=== PATIENT | male | born 1940 | race Caucasian/White ===

== ENCOUNTER 2018-07-10 13:37 | Inpatient (IN) ==
[2018-07-10] MEDS ORDERED: SODIUM CHLORIDE 0.9% 1,000 ML IV STA (14:12)
[2018-07-10 14:20] LABS: Basophils % 0.3 % (0.0-0.8); Eosinophils # 0.3 10*3/uL (0.0-0.87); Eosinophils % 2.5 % (0.00-10.9); Hematocrit 30.5 VOL% (42.0-52.0); Hemoglobin 9.3 GM/DL (14.0-18.0); Immature Granulocytes % 0.4 %; Immature Granulocytes Absolute 0.05 #; Lymphocytes # 1.6 10*3/uL (1.4-4.0); Lymphocytes % 13.5 % (21.2-54.2); Mean Corpuscular HGB Conc 30.5 GM/DL (32-36); Mean Corpuscular Hemoglobin 23 PG (27-34); Mean Corpuscular Volume 74.6 FL (87-102); Mean Platelet Volume 9.8 FL (9.6-12.0); Monocytes # 1.6 10*3/uL (0.11-0.8); Monocytes % 13.3 % (1.7-12.7); Neutrophils # 8.4 10*3/uL (1.4-7.4); Platelet Count 360 T/CUMM (130-400); Red Blood Count 4.09 MC/CUMM (3.8-5.5); Red Cell Distribution Width 19.2 % (9.3-17.3)
[2018-07-10 14:45] LABS: Albumin 3.6 G/DL (3.4-5.0); Bilirubin,Total 0.8 MG/DL (0.2-1.0); Calcium 9.4 MG/DL (8.5-10.1); Osmolality,Calculated 282.7 MOS/KG (273-304); Potassium 2.9 MMOL/L (3.5-5.1); Total Protein 7.5 G/DL (6.4-8.3)
[2018-07-10] MEDS ORDERED: POTASSIUM CHLORIDE 20 MEQ TABLET PO STA (14:56)
[2018-07-10] MEDS ORDERED: traZODone 50 MG TABLET PO PRN (16:20)
[2018-07-10] MEDS ORDERED: ACETAMINOPHEN 325 MG TABLET PO PRN (16:20)
[2018-07-10] MEDS ORDERED: ONDANSETRON 4 MG/2 ML VIAL IV PRN (16:20)
[2018-07-10] MEDS ORDERED: MAGNESIUM SULF RIDER 2 GM in PREMIX 1 EACH IV PRN (16:29)
[2018-07-10] MEDS ORDERED: MAGNESIUM SULF RIDER 4 GM in PREMIX 1 EACH IV PRN (16:29)
[2018-07-10 16:30] LABS: Apearance,Urine CLEAR (Clear); Bacteria,Urine Occasional /HPF (Few); Bilirubin,Urine Negative (Negative); Blood, Urine Negative (Negative); Glucose,Urine (UA) Negative (Negative); Ketones,Urine Negative (Negative); Mucus,Urine Occasional /LPF (Occasional); Nitrite,Urine Negative (Negative); Protein,Urine Negative; Sperm,Urine Occasional /HPF (Negative); Urine Color Yellow (Yellow); Urine Specific Gravity 1.013 (1.001-1.035); Urine Urobilinogen < 2.0 EU/DL (0.2-1.0); WBC,Urine 1 /HPF (0-6)
[2018-07-10] MEDS ORDERED: ENOXAPARIN 30 MG/0.3 ML SYRINGE SUBCUT SCH (17:00)
[2018-07-10] MEDS: SODIUM CHLORIDE 0.9% 1,000 ML IV SCH (17:30)
[2018-07-10] MEDS: POTASSIUM CHLORIDE RIDER 10 MEQ in PREMIX 1 EACH IV PRN ×2 (18:50→23:26)
[2018-07-10] MEDS: SIMVASTATIN 10 MG TABLET PO SCH (20:30)
[2018-07-10] MEDS: CARVEDILOL 3.125 MG TABLET PO SCH (20:30)
[2018-07-10] MEDS: FAMOTIDINE 20 MG TABLET PO SCH (20:30)
[2018-07-11] MEDS: SODIUM CHLORIDE 0.9% 1,000 ML IV SCH ×3 (01:29→21:06)
[2018-07-11] MEDS: POTASSIUM CHLORIDE RIDER 10 MEQ in PREMIX 1 EACH IV PRN ×5 (03:35→17:47)
[2018-07-11 07:37] LABS: Basophils # 0.1 10*3/uL (0.0-0.2); Basophils % 0.4 % (0.0-0.8); Eosinophils # 0.4 10*3/uL (0.0-0.87); Eosinophils % 3.1 % (0.00-10.9); Hematocrit 28.3 VOL% (42.0-52.0); Hemoglobin 8.6 GM/DL (14.0-18.0); Immature Granulocytes % 0.3 %; Immature Granulocytes Absolute 0.04 #; Lymphocytes # 2.2 10*3/uL (1.4-4.0); Lymphocytes % 18.9 % (21.2-54.2); Mean Corpuscular HGB Conc 30.4 GM/DL (32-36); Mean Corpuscular Hemoglobin 23 PG (27-34); Mean Corpuscular Volume 75.5 FL (87-102); Mean Platelet Volume 10.1 FL (9.6-12.0); Monocytes # 1.5 10*3/uL (0.11-0.8); Monocytes % 13.1 % (1.7-12.7); Neutrophils # 7.4 10*3/uL (1.4-7.4); Neutrophils % 64.2 % (38.7-73.9); Platelet Count 375 T/CUMM (130-400); Red Blood Count 3.75 MC/CUMM (3.8-5.5); Red Cell Distribution Width 18.7 % (9.3-17.3); White Blood Count 11.5 T/CUMM (4-12)
[2018-07-11 08:09] LABS: Calcium 8.4 MG/DL (8.5-10.1); Osmolality,Calculated 280.5 MOS/KG (273-304); Potassium 3.2 MMOL/L (3.5-5.1)
[2018-07-11 08:14] LABS: Ferritin 7.4 ng/ml (26-388)
[2018-07-11 08:22] LABS: Folate 16.6 NG/ML (5.4-24.0)
[2018-07-11] MEDS: FLUoxetine 20 MG CAPSULE PO SCH (10:06)
[2018-07-11] MEDS: CARVEDILOL 3.125 MG TABLET PO SCH ×2 (10:06→16:26)
[2018-07-11] MEDS: FAMOTIDINE 20 MG TABLET PO SCH ×2 (10:06→21:07)
[2018-07-11] MEDS: ASPIRIN CHEW 81 MG TABLET PO SCH (10:06)
[2018-07-11] MEDS: PANTOPRAZOLE 40 MG TABLET PO SCH (10:06)
[2018-07-11] MEDS: CLOPIDOGREL 75 MG TABLET PO SCH (10:07)
[2018-07-11 14:30] LABS: Hematocrit 27.4 VOL% (42.0-52.0); Hemoglobin 8.1 GM/DL (14.0-18.0)
[2018-07-11] MEDS: metroNIDAZOLE INJ 500 MG in PREMIX 1 EACH IV SCH ×2 (15:07→21:08)
[2018-07-11] MEDS ORDERED: ENOXAPARIN 40 MG/0.4 ML SYRINGE SUBCUT SCH (21:00)
[2018-07-11] MEDS: SIMVASTATIN 10 MG TABLET PO SCH (21:08)
[2018-07-11] MEDS: FERROUS SULFATE 325 MG TABLET PO SCH (21:08)
[2018-07-12] MEDS: metroNIDAZOLE INJ 500 MG in PREMIX 1 EACH IV SCH ×3 (04:07→21:13)
[2018-07-12] MEDS: SODIUM CHLORIDE 0.9% 1,000 ML IV SCH ×3 (07:25→17:10)
[2018-07-12 07:50] LABS: Osmolality,Calculated 288.7 MOS/KG (273-304); Potassium 3.5 MMOL/L (3.5-5.1)
[2018-07-12 07:55] LABS: Basophils % 0.5 % (0.0-0.8); Eosinophils # 0.3 10*3/uL (0.0-0.87); Eosinophils % 3.8 % (0.00-10.9); Hematocrit 27.4 VOL% (42.0-52.0); Immature Granulocytes % 0.5 %; Immature Granulocytes Absolute 0.04 #; Lymphocytes # 1.7 10*3/uL (1.4-4.0); Lymphocytes % 22.1 % (21.2-54.2); Mean Corpuscular HGB Conc 29.2 GM/DL (32-36); Mean Corpuscular Hemoglobin 23 PG (27-34); Mean Corpuscular Volume 77.8 FL (87-102); Mean Platelet Volume 10.5 FL (9.6-12.0); Monocytes # 1.1 10*3/uL (0.11-0.8); Monocytes % 14.3 % (1.7-12.7); Neutrophils # 4.5 10*3/uL (1.4-7.4); Neutrophils % 58.8 % (38.7-73.9); Platelet Count 313 T/CUMM (130-400); Red Blood Count 3.52 MC/CUMM (3.8-5.5); Red Cell Distribution Width 19.2 % (9.3-17.3); White Blood Count 7.6 T/CUMM (4-12)
[2018-07-12] MEDS: CLOPIDOGREL 75 MG TABLET PO SCH (09:17)
[2018-07-12] MEDS: FLUoxetine 20 MG CAPSULE PO SCH (09:17)
[2018-07-12] MEDS: ASPIRIN CHEW 81 MG TABLET PO SCH (09:17)
[2018-07-12] MEDS: FAMOTIDINE 20 MG TABLET PO SCH ×2 (09:17→21:12)
[2018-07-12] MEDS: CARVEDILOL 3.125 MG TABLET PO SCH ×2 (09:17→17:10)
[2018-07-12] MEDS: FERROUS SULFATE 325 MG TABLET PO SCH ×2 (09:17→21:12)
[2018-07-12] MEDS: PANTOPRAZOLE 40 MG TABLET PO SCH (09:17)
[2018-07-12] MEDS: SIMVASTATIN 10 MG TABLET PO SCH (21:12)
[2018-07-13] MEDS: SODIUM CHLORIDE 0.9% 1,000 ML IV SCH ×2 (02:03→15:40)
[2018-07-13 04:38] LABS: Basophils # 0.1 10*3/uL (0.0-0.2); Basophils % 0.8 % (0.0-0.8); Eosinophils # 0.3 10*3/uL (0.0-0.87); Hematocrit 26.1 VOL% (42.0-52.0); Hemoglobin 7.5 GM/DL (14.0-18.0); Immature Granulocytes % 0.3 %; Immature Granulocytes Absolute 0.02 #; Lymphocytes # 1.4 10*3/uL (1.4-4.0); Lymphocytes % 18.3 % (21.2-54.2); Mean Corpuscular HGB Conc 28.7 GM/DL (32-36); Mean Corpuscular Hemoglobin 23 PG (27-34); Mean Corpuscular Volume 79.1 FL (87-102); Mean Platelet Volume 10.5 FL (9.6-12.0); Monocytes # 1.1 10*3/uL (0.11-0.8); Monocytes % 14.2 % (1.7-12.7); Neutrophils # 4.7 10*3/uL (1.4-7.4); Neutrophils % 62.4 % (38.7-73.9); Platelet Count 309 T/CUMM (130-400); Red Cell Distribution Width 19.5 % (9.3-17.3); White Blood Count 7.5 T/CUMM (4-12)
[2018-07-13 04:53] LABS: Albumin 2.8 G/DL (3.4-5.0); Bilirubin,Total 0.4 MG/DL (0.2-1.0); Calcium 7.3 MG/DL (8.5-10.1); Osmolality,Calculated 296.3 MOS/KG (273-304); Potassium 3.4 MMOL/L (3.5-5.1)
[2018-07-13] MEDS: metroNIDAZOLE INJ 500 MG in PREMIX 1 EACH IV SCH ×3 (05:03→20:51)
[2018-07-13 07:29] LABS: Microcytosis 2+; Platelet Estimate Normal
[2018-07-13 07:30] LABS: Ovalocytes Few
[2018-07-13] MEDS ORDERED: SODIUM CHLORIDE 0.9% 1,000 ML IV PRN (08:02)
[2018-07-13] MEDS ORDERED: POTASSIUM PHOSPHATE 15 MMOL in SODIUM CHLORIDE 0.9% 100 ML IV ONE (09:40)
[2018-07-13] MEDS: FERROUS SULFATE 325 MG TABLET PO SCH ×2 (09:47→20:45)
[2018-07-13] MEDS: PANTOPRAZOLE 40 MG TABLET PO SCH (09:47)
[2018-07-13] MEDS: FLUoxetine 20 MG CAPSULE PO SCH (09:47)
[2018-07-13] MEDS: CLOPIDOGREL 75 MG TABLET PO SCH (09:47)
[2018-07-13] MEDS: FAMOTIDINE 20 MG TABLET PO SCH ×2 (09:47→20:45)
[2018-07-13] MEDS: CARVEDILOL 3.125 MG TABLET PO SCH ×2 (09:48→16:46)
[2018-07-13] MEDS: POTASSIUM CHLORIDE RIDER 10 MEQ in PREMIX 1 EACH IV PRN (09:50)
[2018-07-13] MEDS: ASPIRIN CHEW 81 MG TABLET PO SCH (09:50)
[2018-07-13] MEDS: SIMVASTATIN 10 MG TABLET PO SCH (20:45)
[2018-07-13] MEDS: DEXT 5% NACL 0.45% KCL 20 MEQ 20 MEQ/1,000 ML BAG IV SCH (20:50)
[2018-07-14] MEDS: DEXT 5% NACL 0.45% KCL 20 MEQ 20 MEQ/1,000 ML BAG IV SCH ×2 (00:38→21:01)
[2018-07-14] MEDS: metroNIDAZOLE INJ 500 MG in PREMIX 1 EACH IV SCH ×2 (04:43→21:01)
[2018-07-14 05:04] LABS: Basophils # 0.1 10*3/uL (0.0-0.2); Basophils % 0.5 % (0.0-0.8); Eosinophils # 0.3 10*3/uL (0.0-0.87); Eosinophils % 2.4 % (0.00-10.9); Hematocrit 32.4 VOL% (42.0-52.0); Hemoglobin 9.9 GM/DL (14.0-18.0); Immature Granulocytes % 0.6 %; Immature Granulocytes Absolute 0.06 #; Lymphocytes # 1.1 10*3/uL (1.4-4.0); Lymphocytes % 10.2 % (21.2-54.2); Mean Corpuscular HGB Conc 30.6 GM/DL (32-36); Mean Corpuscular Hemoglobin 24 PG (27-34); Mean Corpuscular Volume 78.3 FL (87-102); Mean Platelet Volume 10.1 FL (9.6-12.0); Monocytes # 1.4 10*3/uL (0.11-0.8); Monocytes % 13.1 % (1.7-12.7); Neutrophils # 7.7 10*3/uL (1.4-7.4); Neutrophils % 73.2 % (38.7-73.9); Platelet Count 312 T/CUMM (130-400); Red Blood Count 4.14 MC/CUMM (3.8-5.5); Red Cell Distribution Width 19.3 % (9.3-17.3); White Blood Count 10.5 T/CUMM (4-12)
[2018-07-14 05:42] LABS: Bilirubin,Total 1.5 MG/DL (0.2-1.0); Calcium 7.5 MG/DL (8.5-10.1); Osmolality,Calculated 295.3 MOS/KG (273-304); Potassium 3.1 MMOL/L (3.5-5.1); Total Protein 6.5 G/DL (6.4-8.3)
[2018-07-14] MEDS: POTASSIUM CHLORIDE RIDER 10 MEQ in PREMIX 1 EACH IV PRN (07:19)
[2018-07-14] MEDS ORDERED: POTASSIUM PHOSPHATE 30 MMOL in SODIUM CHLORIDE 0.9% 250 ML IV ONE (07:23)
[2018-07-14] MEDS ORDERED: FUROSEMIDE 40 MG/4 ML VIAL IV ONE (08:09)
[2018-07-14] MEDS: FERROUS SULFATE 325 MG TABLET PO SCH (09:38)
[2018-07-14] MEDS: FLUoxetine 20 MG CAPSULE PO SCH (09:38)
[2018-07-14] MEDS: CARVEDILOL 3.125 MG TABLET PO SCH (09:38)
[2018-07-14] MEDS: ASPIRIN CHEW 81 MG TABLET PO SCH (09:38)
[2018-07-14] MEDS: CLOPIDOGREL 75 MG TABLET PO SCH (09:38)
[2018-07-14] MEDS: PANTOPRAZOLE 40 MG TABLET PO SCH (09:38)
[2018-07-14] MEDS: FAMOTIDINE 20 MG TABLET PO SCH (09:38)
[2018-07-14] MEDS ORDERED: LEVOFLOXACIN 750 MG TABLET PO ONE (09:39)
[2018-07-14 15:47] VITALS: BP 119/76
== END 2018-07-14 16:24 | DRG 392 ==
LOC: EDBD → EDUNIT# → N.ED 13:37 → SUATTDRO 16:20 → N.EDINP 16:20 → N.3W 17:35
PROVIDERS: ADMIT Internal Medicine; ATTEND Internal Medicine